=== PATIENT | male | born 1940 | race American Indian/Alaskan Native ===

== ENCOUNTER 2016-10-30 10:11 | Day surgery (SDC) | payer MEDICARE, OTHER ==
[~2016-10-30] VITALS: Ht 182.9 cm; Wt 86.2 kg
[~2016-10-30 10:11] MED LIST: AMLO10TA2 PO; ASPI-496 PO; ATOR20TA9 PO; BRIM5DRO3 EACHEYE; DORZ10DR7 EACHEYE; LATA2.5D3 EACHEYE; LISI-170 PO; METO25TA35 PO
[2016-10-30] MEDS ORDERED: LACTATED RINGERS 1,000 ML IV SCH (10:54)
[2016-10-30] MEDS ORDERED: LIDOCAINE 1%, 2ML SQ PRN (11:00)
[2016-10-30 11:02] VITALS: BP 146/81
[2016-10-30] MEDS ORDERED: LIDOCAINE 1%, 2ML ONE (11:12)
[2016-10-30 11:53] LABS: ASPARTATE AMINO TRANSFERASE 19 U/L (15-37); BLOOD UREA NITROGEN 18 mg/dL (7-18)
[2016-10-30] MEDS ORDERED: MIDAZOLAM 1 MG/ML, 2ML ONE (13:34)
[2016-10-30] MEDS ORDERED: PROMETHAZINE 25 MG/ML, 1ML IV PRN (15:00)
[2016-10-30] MEDS ORDERED: ALBUTEROL SULFATE 2.5 MG/3 ML NPPB PRN (15:00)
[2016-10-30] MEDS ORDERED: ONDANSETRON 2MG/ML, 2ML IVPush PRN (15:00)
[2016-10-30] MEDS ORDERED: OXYcodone 5 MG/5 ML ORAL.SOL UDC PO PRN (15:00)
[2016-10-30] MEDS ORDERED: METOPROLOL 1 MG/ML, 5ML IV PRN (15:00)
[2016-10-30] MEDS ORDERED: MEPERIDINE/PF 25MG/0.5ML IVPush PRN (15:00)
[2016-10-30] MEDS ORDERED: HYDROcodone/APAP 7.5-325MG/15ML UDC PO PRN (15:00)
[2016-10-30] MEDS ORDERED: hydrALAzine 20 MG/ML, 1ML IV PRN (15:00)
[2016-10-30] MEDS ORDERED: LABETALOL 5MG/ML, 20ML IV PRN (15:00)
[2016-10-30] MEDS ORDERED: FENTANYL PF 100 MCG/2ML IV PRN (15:00)
[2016-10-30] MEDS ORDERED: EPHEDRINE 50 MG/ML, 1ML IVPush PRN (15:00)
[2016-10-30] MEDS ORDERED: ACETAMINOPHEN 325 MG TABLET PO PRN (15:00)
== END 2016-10-30 16:49 ==
LOC: OUT 10:11
PROVIDERS: ATTEND Internal Medicine Geriatric Medicine
DX: K86.1 Other chronic pancreatitis (principal); K86.89 Other specified diseases of pancreas; I25.2 Old myocardial infarction; I25.10 Atherosclerotic heart disease of native coronary artery without angina pectoris; E78.5 Hyperlipidemia, unspecified; I10 Essential (primary) hypertension; Z87.39 Personal history of other diseases of the musculoskeletal system and connective tissue; Z98.890 Other specified postprocedural states; Z87.891 Personal history of nicotine dependence; Z72.89 Other problems related to lifestyle
CPT/HCPCS: 36415; 43242; 80053; 93005; J2250; J3490; J7120